=== PATIENT | female | born 1970 | race Hispanic/Latino ===

== ENCOUNTER 2017-01-03 15:25 | Emergency (ER) | payer MEDICAID ==
[2017-01-03 15:27] VITALS: BMI 19.2
[2017-01-03 15:34] VITALS: BP 141/96; PULSE 66; RESP 18; TEMP 97.7; O2SAT 100
[2017-01-03] MEDS ORDERED: Sodium Chloride 0.9% 500 ML IV STA (15:49)
--- NOTE | 2017-01-03 16:09 | ED PDOC ---
Arrival/HPI - General Historian: Patient - History of Present Illness Time/Duration: 4-6 hours Symptom Onset: Sudden Symptom Course: Unchanged Severity Level: Severe Activities at Onset: Rest Context: Home <Soila Alvarez - Last Filed: 01/03/17 18:14> <Urvashi Delgadillo - Last Filed: 01/03/17 18:34> - General Chief Complaint: Abdominal Pain Time Seen by Provider: 01/03/17 15:48 - History of Present Illness Narrative History of Present Illness (Text): 01/03/17 16:25 This is a 47Y F with PMH HTN, intractable abdominal pain, chronic fibromyalgia who came to ED for abdominal pain for the past 6 hours. She reports the abdominal pain is periumbilical and does not radiate. She feels nauseous and vomited 5 times this morning. It is green in color. The patient denies sick contacts, change in diet, recent travel. She reports that she gets this pain once in a while and is relieved by "pain medication". She denies diarrhea, fever , chills, sexual activity, vaginal discharge, SOB, CP, dysuria or hematuria. She states she is on her period right now. (Soila Alvarez) Past Medical History - Provider Review Nursing Documentation Reviewed: Yes - Travel History Have you recently traveled outside [place] w/in the past 3 mons?: No - Past History Past History: No Previous - Infectious Disease Hx of Infectious Diseases: None - Tetanus Immunization Tetanus Immunization: Unknown - Cardiac Hx Cardiac Disorders: Yes Hx Hypertension: Yes - Pulmonary Hx Respiratory Disorders: No - Neurological Hx Neurological Disorder: Yes (FIBROMYALGIA) Other/Comment: brain aneurysm - HEENT Hx HEENT Disorder: No - Renal Hx Renal Disorder: No - Endocrine/Metabolic Hx Endocrine Disorders: No - Hematological/Oncological Hx Blood Disorders: Yes Hx Shingles: Yes 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 - Integumentary Hx Dermatological Disorder: No - Musculoskeletal/Rheumatological Hx Falls: Yes (06/04) - Gastrointestinal Hx Gastrointestinal Disorders: Yes Hx Diverticulitis: Yes (DIVERTICULOSIS/ULCER/GASTRITIS/GB DISEASE) Hx Gall Bladder Disease: Yes - Genitourinary/Gynecological Hx Genitourinary Disorders: Yes Other/Comment: FIBROIDS/ 2 PREGNANCIES,NO LIVE BIRTHS/OVARIAN CYSTS - Psychiatric Hx Psychophysiologic Disorder: Yes Hx Anxiety: Yes Hx Depression: Yes Hx Emotional Abuse: No Hx Physical Abuse: No Hx Substance Use: Yes (Marijuana) - Past Surgical History Past Surgical History: No Previous - Anesthesia Hx Anesthesia: No Hx Anesthesia Reactions: No Hx Malignant Hyperthermia: No - Suicidal Assessment Feels Threatened In Home Enviroment: No <Soila Alvarez - Last Filed: 01/03/17 18:14> Family/Social History - Physician Review Nursing Documentation Reviewed: Yes Family/Social History: Unknown Family HX Smoking Status: Heavy Smoker > 10 Cigarettes Daily Hx Alcohol Use: No Hx Substance Use: Yes (Marijuana) Substance used: CANNABIS Hx Substance Use Treatment: No <Soila Alvarez - Last Filed: 01/03/17 18:14> Allergies/Home Meds <Soila Alvarez - Last Filed: 01/03/17 18:14> <Urvashi Delgadillo - Last Filed: 01/03/17 18:34> Allergies/Adverse Reactions: Allergies No Known Allergies Allergy (Verified 06/12/16 14:58) Home Medications: Home Meds Medication Instructions Recorded Confirmed PARoxetine [Paxil] 30 mg PO DAILY 09/14/11 01/03/17 ALPRAZolam [Xanax] 0.5 mg PO TID PRN 05/21/15 01/03/17 Gabapentin [Neurontin] 300 mg PO QID 06/09/16 01/03/17 Metoprolol Tartrate [Lopressor] 25 mg PO DAILY 01/03/17 01/03/17 traMADol [Ultram] 50 mg PO BID 01/03/17 01/03/17 Review of Systems - Physician Review All systems were reviewed & negative as marked: Yes - Review of Systems Constitutional: Normal. absent: Fatigue, Fevers ENT: Normal. absent: Sore Throat Respiratory: Normal. absent: SOB, Cough Cardiovascular: Normal. absent: Chest Pain, Palpitations Gastrointestinal: Abdominal Pain, Nausea, Vomiting. absent: Diarrhea Genitourinary Female: Vaginal Bleeding (on period ). absent: Dysuria, Frequency , Hematuria, Vaginal Discharge Musculoskeletal: Normal. absent: Arthralgias, Back Pain Skin: Normal. absent: Rash Neurological: Normal. absent: Headache, Dizziness Endocrine: Normal. absent: Diaphoresis Psychiatric: Anxiety. absent: Depression <Soila Alvarez - Last Filed: 01/03/17 18:14> Physical Exam Vital Signs Reviewed: Yes Temperature: Afebrile Blood Pressure: Hypertensive Pulse: Regular Respiratory Rate: Normal Appearance: Positive for: Well-Appearing, Non-Toxic, Comfortable Pain Distress: None Mental Status: Positive for: Alert and Oriented X 3 - Systems Exam Head: Present: Atraumatic, Normocephalic Pupils: Present: PERRL Extroacular Muscles: Present: EOMI Conjunctiva: Present: Normal Mouth: Present: Moist Mucous Membranes Neck: Present: Normal Range of Motion Respiratory/Chest: Present: Clear to Auscultation, Good Air Exchange. No: Respiratory Distress, Accessory Muscle Use Cardiovascular: Present: Regular Rate and Rhythm, Normal S1, S2. No: Murmurs Abdomen: Present: Tenderness (mild periumbilical tenderness), Normal Bowel Sounds. No: Distention, Peritoneal Signs, Rebound, Guarding, Hernias, Mass/ Organomegaly Back: Present: Normal Inspection Upper Extremity: Present: Normal Inspection. No: Cyanosis, Edema Lower Extremity: Present: Normal Inspection. No: Edema Neurological: Present: GCS=15, CN II-XII Intact, Speech Normal Skin: Present: Warm, Dry, Normal Color. No: Rashes Psychiatric: Present: Alert, Oriented x 3, Normal Insight, Normal Concentration <KimSoila - Last Filed: 01/03/17 18:14> <Urvashi Delgadillo - Last Filed: 01/03/17 18:34> Vital Signs Temp Pulse Resp BP Pulse Ox 01/03/17 15:33 97.7 F 66 18 141/96 H 100 Medical Decision Making Re-evaluation Time: 16:35 <KimSoila - Last Filed: 01/03/17 18:14> <Urvashi Delgadillo - Last Filed: 01/03/17 18:34> ED Course and Treatment: 01/03/17 16:25 Impression: This is a 47Y F with PMH HTN, intractable abdominal pain, chronic fibromyalgia who came to ED for abdominal pain for the past 6 hours. Differential Diagnosis included but are not limited to: Plan: -- CBC, CMP, U/A, Lipase, Mag, Phos -- NS, Zofran -- EKG -- Reassess and disposition EKG: Ordered, reviewed, and independently interpreted the EKG. Rate : 89 BPM Rhythm : NSR Interpretation : QTc prolongation. Other intervals within normal limits. No ST- segment elevations or depressions, no T-wave inversions. Comparison : No previous EKG for comparison. Progress Notes: 01/03/17 16:32 Labs reviewed. Of Note, CBC showed mild elevation of WBC. Lipase negative. Phos low. Patient given Neutra-phos, Pepcid and Maalox. CT abd/pelvis ordered. Patient refusing to urinate. Straight Cath ordered. 01/03/17 17:04 U/A negative. Patient complaining of nausea. Reglan given. Awaiting CT final read. CT negative for acute abnormalities. Patient requesting Zofran and Morphine. Patient educated on Zofran and her prolonged QT. CT abdomen and pelvis w/o contrast HISTORY: abdominal pain COMPARISON: None. FINDINGS: LOWER THORAX: No evidence of acute infiltrate however some minimal linear scarring changes seen in the left lingular region. No evidence of effusion or basilar pneumothorax. . There appears be tiny hiatal hernia with slight wall thickening of the distal esophagus that could be due to protrusion gastric mucosa. Possibility of esophagitis not excluded. LIVER: Liver measures approximately 17.2 cm in CC dimension. Liver demonstrates normal attenuation pattern. No obvious mass or collection seen on this noncontrast study. No hepatic calcifications. GALBLADDER AND BILE DUCTS: The gallbladder is slightly distended. No evidence of intraluminal gallbladder calculi. PANCREAS: The pancreas appears unremarkable. No evidence of pancreatic mass collection or calcification. No significant pancreatic ductal dilatation. SPLEEN: Unremarkable. No splenomegaly. ADRENALS: Slightly nodular appearance of the left adrenal gland KIDNEYS AND URETERS: Kidneys demonstrate relatively symmetric size. No evidence of nephrolithiasis or hydronephrosis. No obvious renal masses or collections. BLADDER: Urinary bladder is incompletely distended which may account for slight thick- walled appearance. Cystitis not excluded. Clinical correlation with urinalysis recommended. REPRODUCTIVE: There appear to be a few scattered calcifications along about the vaginal vault. APPENDIX: The appendix is not seen with complete certainty however no obvious inflammatory changes are identified within the right lower quadrant of the abdomen. BOWEL: Evaluation of the bowel is limited due to the lack of oral contrast material. Stomach is distended with food debris liquid and air. Visualized loops of small bowel exhibit normal contour and caliber. No evidence of acute mechanical small bowel obstruction. Most of the entire colon is collapsed and or free difficult to evaluate. There does appear to be a few scattered colonic diverticula along the sigmoid colon. No definitive radiographic evidence of acute diverticulitis PERITONEUM: Unremarkable. No fluid collection. No free air. . Tiny fat containing umbilical hernia. LYMPH NODES: Unremarkable. No enlarged lymph nodes. VASCULATURE: Unremarkable. No aortic aneurysm. BONES: Minor multilevel degenerative spondylosis of the lower thoracic and to a lesser degree lumbar spine . OTHER FINDINGS: None. IMPRESSION: No evidence of acute intra abdominal pathology. Mild wall thickening of the urinary bladder the likely in part due to incomplete distention however cystitis not excluded. Clinical correlation recommended. On reevaluation the patient feels better and is in no acute distress. I have discussed the results and plan with the patient, who expresses understanding. Patient is stable for discharge. Patient was instructed to follow up with physician/clinic in 1-2 days or return if symptoms persist/worsen or new concerning symptoms arise. Patient was requesting narcotics despite explaining the lack of indication after explaining to her at length. Multiple non-narcotic options were given. Patient reports this is her chronic fibromyalgia pain. She was educated on [facility]'s policy for narcotics on chronic pain. Patient eloped. (Soila Alvarez) A 47 year old female with abdominal pain. In agreement with resident note, which includes further HPI details. Patient was seen and evaluated with resident , came up with plan and treatment together. Patient's labs were grossly normal. UA negative. I went to explain to the patient the results of her CT and labs. She again requested narcotic medication for fibromyalgia. I explained to patient [facility] policy on chronic pain and gave multiple alternatives to opiods which she refused. I told patient I would call her PMD Dr. Martinez for further information and patient pasha while I was making this call. 01/03/17 18:32 (Urvashi Delgadillo) - Lab Interpretations Lab Results: 01/03/17 15:53 01/03/17 15:53 Lab Results 01/03/17 17:10: Urine Color Light yellow, Urine Appearance Clear, Urine pH 8.0, Ur Specific [place] 1.020, Urine Protein Trace H, Urine Glucose (UA) Negative, Urine Ketones 40 H, Urine Blood Negative, Urine Nitrate Negative, Urine Bilirubin Negative, Urine Urobilinogen 0.2, Ur Leukocyte Esterase Negative, Urine RBC 0 - 2, Urine WBC 0 - 2, Ur Epithelial Cells 0 - 2, Urine Bacteria Small 01/03/17 15:53: Sodium 142, Potassium 4.0, Chloride 108 H, Carbon Dioxide 20 L, Anion Gap 18, BUN 20, Creatinine 0.7, Est GFR ( Amer) > 60, Est GFR (Non- Af Amer) > 60, Random Glucose 171 H, Calcium 9.8, Phosphorus 2.1 L, Magnesium 2.0, Total Bilirubin 0.5, AST 26, ALT 30, Alkaline Phosphatase 139 H, Total Protein 7.8, Albumin 4.5, Globulin 3.3, Albumin/Globulin Ratio 1.4, Lipase 96 01/03/17 15:53: WBC 13.0 H, RBC 4.66, Hgb 14.6, Hct 43.3, MCV 92.9, MCH 31.3, MCHC 33.7, RDW 15.6 H, Plt Count 282, MPV 9.7, Gran % 82.5 H, Lymph % (Auto) 12.9 L, O'Brien % (Auto) 4.2, Eos % (Auto) 0.2 L, Baso % (Auto) 0.2, Gran # 10.73 H , Lymph # 1.7, O'Brien # 0.6, Eos # 0.0, Baso # 0.03 - RAD Interpretation Radiology Orders: 01/03/17 17:03 ABD & PELVIS W/O PO OR IV CONT [CT] Stat - Medication Orders Current Medication Orders: Discontinued Medications Al Hydrox/Mg Hydrox/Simethicone (Maalox Plus 30 Ml) 30 ml PO STAT STA Stop: 01/03/17 16:45 Last Admin: 01/03/17 17:16 Dose: 30 ml Famotidine (Pepcid) 20 mg IVP STAT STA Stop: 01/03/17 16:45 Last Admin: 01/03/17 17:16 Dose: 20 mg Sodium Chloride (Sodium Chloride 0.9%) 500 mls @ 999 mls/hr IV .Q31M STA Stop: 01/03/17 16:19 Last Admin: 01/03/17 16:05 Dose: 999 mls/hr Iohexol (Omnipaque 350 100 Ml) Confirm Administered Dose 350 mg .ROUTE .STK-MED ONE Stop: 01/03/17 17:05 Metoclopramide HCl (Reglan) 10 mg IVP STAT STA Stop: 01/03/17 17:39 Last Admin: 01/03/17 17:47 Dose: 10 mg Ondansetron HCl (Zofran Inj) 4 mg IVP STAT STA Stop: 01/03/17 15:49 Last Admin: 01/03/17 16:05 Dose: 4 mg Potassium Phos/Sodium Phos (Neutra-Phos) 1 pkt PO STAT STA Stop: 01/03/17 16:45 Last Admin: 01/03/17 17:15 Dose: 1 pkt <Soila Alvarez - Last Filed: 01/03/17 18:14> - PA / OPERATOR ASSISTANT I CEMENTING / Resident Statement / has reviewed & agrees with the documentation as recorded. / has examined the patient and agrees with the treatment plan. - Scribe Statement The provider has reviewed the documentation as recorded by the Scribe <Urvashi Delgadillo - Last Filed: 01/03/17 18:34> - Scribe Statement Nabila Peralta Provider Scribe Attestation: All medical record entries made by the Scribe were at my direction and personally dictated by me. I have reviewed the chart and agree that the record accurately reflects my personal performance of the history, physical exam, medical decision making, and the department course for this patient. I have also personally directed, reviewed, and agree with the discharge instructions and disposition. (Urvashi Delgadillo) Disposition/Present on Arrival - Present on Arrival Any Indicators Present on Arrival: No History of DVT/PE: No History of Uncontrolled Diabetes: No Urinary Catheter: No History of Decub. Ulcer: No History Surgical Site Infection Following: None - Disposition Have Diagnosis and Disposition been Completed?: Yes Disposition Time: 18:00 Patient Plan: Discharge <Soila Alvarez - Last Filed: 01/03/17 18:14> <Urvashi Delgadillo - Last Filed: 01/03/17 18:34> - Disposition Diagnosis: Abdominal pain Disposition: LEFT W/O TREATMENT - ER ONLY Condition: FAIR Print Language: PORTUGUESE Referrals: Diaz Martinez DO [Primary Care Provider] - Follow up with primary Forms: Prevently (Angolan)
[2017-01-03 16:12] LABS: BASO # 0.03 K/mm3 (0.0-2.0); BASO % 0.2 % (0.0-3.0); EOS % 0.2 % (1.5-5.0); GRAN # 10.73 (1.4-6.5); GRAN % 82.5 % (50.0-68.0); HEMATOCRIT 43.3 % (36.0-48.0); LYMPH # 1.7 (1.2-3.4); LYMPH % 12.9 % (22.0-35.0); MEAN CELL VOLUME 92.9 fl (80.0-105.0); MEAN CORPUSCULAR HEMOGLOBIN 31.3 pg (25.0-35.0); MEAN CORPUSCULAR HGB CONC 33.7 g/dl (31.0-37.0); MEAN PLATELET VOLUME 9.7 fl (7.0-11.0); MONO # 0.6 (0.1-0.6); MONO % 4.2 % (1.0-6.0); RED CELL DISTRIBUTION WIDTH 15.6 % (11.5-14.5)
[2017-01-03 16:32] LABS: ALB/GLOB RATIO 1.4 (1.1-1.8); ALKALINE PHOSPHATASE 139 U/L (38-126); ALT/SGPT 30 U/L (7-56); AST/SGOT 26 U/L (14-36); BILIRUBIN,TOTAL 0.5 mg/dL (0.2-1.3); BLOOD UREA NITROGEN 20 mg/dL (7-21); CALCIUM 9.8 mg/dL (8.4-10.5); CARBON DIOXIDE 20 mmol/L (21-33); CHLORIDE 108 mmol/L (98-107); GFR AFRICAN-AMERICAN > 60; GLUCOSE,RANDOM 171 mg/dL (70-110); LIPASE 96 U/L (23-300); PHOSPHOROUS 2.1 mg/dL (2.5-4.5); SODIUM 142 mmol/L (132-148); TOTAL PROTEIN 7.8 g/dL (5.8-8.3)
[2017-01-03] MEDS ORDERED: Alum-Mag Hydrox-Simethicone Susp (30 mL) PO STA (16:44)
[2017-01-03] MEDS ORDERED: Potassium & Sodium Phosphate PO STA (16:44)
[2017-01-03] MEDS ORDERED: Iohexol 350 MG/100 ML VIAL ONE (17:04)
[2017-01-03 17:35] LABS: URINE BILIRUBIN NEGATIVE (NEGATIVE); URINE BLOOD NEGATIVE (NEGATIVE); URINE GLUCOSE (UA) NEGATIVE (NEGATIVE); URINE KETONE 40 mg/dL (NEGATIVE); URINE LEUKOCYTE ESTERASE NEGATIVE Leu/uL (NEGATIVE); URINE PROTEIN TRACE mg/dL (<30 mg/dL); URINE UROBILINOGEN 0.2 E.U./dL (<1 E.U./dL)
[2017-01-03 17:38] LABS: URINE APPEARANCE CLEAR (CLEAR); URINE COLOR LIGHT YELLOW (YELLOW)
[2017-01-03 17:47] LABS: URINE BACTERIA SMALL (NEG); URINE EPITHELIAL CELLS 0 - 2 /hpf (0-5); URINE RBC 0 - 2 /hpf (0-2); URINE WBC 0 - 2 /hpf (0-6)
--- NOTE | 2017-01-03 18:01 | CT ---
PROCEDURE: CT abdomen and pelvis dated 01/03/2017. HISTORY: abdominal pain COMPARISON: None. TECHNIQUE: Contiguous axial images of the abdomen and pelvis performed without oral or intravenous contrast material. Coronal and Sagittal reformats generated. Radiation dose: Total exam DLP = 383.28 mGy-cm. This CT exam was performed using one or more of the following dose reduction techniques: Automated exposure control, adjustment of the mA and/or kV according to patient size, and/or use of iterative reconstruction technique. FINDINGS: LOWER THORAX: No evidence of acute infiltrate however some minimal linear scarring changes seen in the left lingular region. No evidence of effusion or basilar pneumothorax. . There appears be tiny hiatal hernia with slight wall thickening of the distal esophagus that could be due to protrusion gastric mucosa. Possibility of esophagitis not excluded. LIVER: Liver measures approximately 17.2 cm in CC dimension. Liver demonstrates normal attenuation pattern. No obvious mass or collection seen on this noncontrast study. No hepatic calcifications. No . GALLBLADDER AND BILE DUCTS: The gallbladder is slightly distended. No evidence of intraluminal gallbladder calculi. PANCREAS: The pancreas appears unremarkable. No evidence of pancreatic mass collection or calcification. No significant pancreatic ductal dilatation. SPLEEN: Unremarkable. No splenomegaly. ADRENALS: Slightly nodular appearance of the left adrenal gland KIDNEYS AND URETERS: Kidneys demonstrate relatively symmetric size. No evidence of nephrolithiasis or hydronephrosis. No obvious renal masses or collections. BLADDER: Urinary bladder is incompletely distended which may account for slight thick-walled appearance. Cystitis not excluded. Clinical correlation with urinalysis recommended. REPRODUCTIVE: There appear to be a few scattered calcifications along about the vaginal vault. APPENDIX: The appendix is not seen with complete certainty however no obvious inflammatory changes are identified within the right lower quadrant of the abdomen. BOWEL: Evaluation of the bowel is limited due to the lack of oral contrast material. Stomach is distended with food debris liquid and air. Visualized loops of small bowel exhibit normal contour and caliber. No evidence of acute mechanical small bowel obstruction. Most of the entire colon is collapsed and or free difficult to evaluate. There does appear to be a few scattered colonic diverticula along the sigmoid colon. No definitive radiographic evidence of acute diverticulitis PERITONEUM: Unremarkable. No fluid collection. No free air. . Tiny fat containing umbilical hernia. LYMPH NODES: Unremarkable. No enlarged lymph nodes. VASCULATURE: Unremarkable. No aortic aneurysm. BONES: Minor multilevel degenerative spondylosis of the lower thoracic and to a lesser degree lumbar spine . OTHER FINDINGS: None. IMPRESSION: No evidence of acute intra abdominal pathology. Mild wall thickening of the urinary bladder the likely in part due to incomplete distention however cystitis not excluded. Clinical correlation recommended.
--- NOTE | 2017-01-03 20:39 | CARD ---
APPROVED REPORT EKG Measurement Heart [id number] <Conclusion> Normal sinus rhythm Prolonged QT Abnormal ECG
== END 2017-01-03 18:16 | disposition left against medical advice (07) ==
LOC: ED 15:25
DX: R10.9 Unspecified abdominal pain (principal)
CPT/HCPCS: 74176; 80053; 81001; 83690; 83735; 84100; 85025; 93005; 96374; 96375; 99284; J2405; J2765; J7040